=== PATIENT | female | born 1965 | race Two or more races ===

== ENCOUNTER 2017-01-16 09:57 | Emergency (ER) | payer OTHER ==
[2017-01-16] MEDS ORDERED: IOPAMIDOL 370 (76%) 100 ML VIAL IV ONE (09:58)
[2017-01-16] MEDS ORDERED: SODIUM CHLORIDE 0.9% 1,000 ML ONE (10:28)
[2017-01-16] MEDS ORDERED: ONDANSETRON 4 MG/2ML 2 ML VIAL ONE (10:28)
[2017-01-16 10:40] LABS: ABSOLUTE NEUTROPHIL COUNT 3.9 K/mm3 (1.8-7.7); BASO % 0.5 % (0.2-1.0); EOS # 0.1 (0.0-0.5); EOS % 1.1 % (0.9-2.9); HEMATOCRIT 43.6 % (37.0-47.0); HEMOGLOBIN 15.1 gm/l (12.0-16.0); IMM NEUT% 0.3 % (0-1); LYMPH % 39.2 % (15-45); MEAN CELL VOLUME 90.6 fl (81.0-99.0); MEAN CORPUSCULAR HEMOGLOBIN 31.4 pg (27.0-31.0); MEAN CORPUSCULAR HGB CONC 34.6 g/dl (33.0-37.0); MEAN PLATELET VOLUME 10.3 fl (7.4-10.4); MONO # 0.6 (0.0-0.8); MONO % 7.6 % (4-12); NEUT % 51.3 % (43-75); PLATELET COUNT 251 K/mm3 (130-400); RED CELL DISTRIBUTION WIDTH 11.7 % (11.5-14.5)
[2017-01-16 10:51] LABS: ALB/GLOB RATIO 1.2 (>1.0); ALBUMIN 4.2 gm/dL (3.5-5.7); CALCIUM 9.9 mg/dL (8.6-10.3)
--- NOTE | 2017-01-16 11:06 | CT ---
HEAD CT WITHOUT CONTRAST HISTORY: Right eye not opening. No intravenous contrast administered. Contiguous axial images acquired from skull base to vertex. COMPARISON:None. BRAIN VOLUME: Mild diffuse volume loss for patient age with prominence of subarachnoid spaces. VENTRICULAR SIZE:No gross ventriculomegaly. FOCAL MASS EFFECT: Multiple dural based calcifications, some of which may reflect early changes of hyperostosis frontalis interna. Foci of minimal left frontal cortical buckling without midline shift. Small low-attenuation focus of left-sided midbrain. ACUTE INTRACRANIAL HEMORRHAGE:None. CALVARIUM:Grossly intact. VISIBLE PARANASAL SINUSES AND MASTOID AIR CELLS:Grossly clear. IMPRESSION: No gross mass effect, ventriculomegaly, or acute intracranial hemorrhage. Low-attenuation focus of left-sided midbrain may reflect remote lacunar infarct or prominent perivascular space; however, this is contralateral to patient's symptoms. Findings discussed with Dr. Hagen of the Emergency Medicine clinical service on 01/16/2017 at 1102 hours.
--- NOTE | 2017-01-16 11:57 | CT ---
CTA CAROTID W/ POST PROCESS COMPARISON: None. HISTORY: Right eye not opening. Acute onset. TECHNIQUE: [employer] [address] scanner. Intravenous injection 80 mL 37. Contrast-enhanced images obtained from the aortic arch to the skull base. Under concurrent supervision and interpretation, requiring a separate 3-D workstation, the manufacturing technologist created 3-D CT angiograms. An automated dose reduction technique was used to minimize patient radiation dose. Dose information: DLP(mGycm): 306.40 FINDINGS: Aortic arch: Normal. Brachiocephalic artery: Normal. Right common carotid artery: Normal. Right internal carotid artery: Normal. Right external carotid artery: Normal. Right vertebral artery: Normal. Right subclavian artery: Normal. Left subclavian artery: Normal. Left common carotid artery: Normal. Left internal carotid artery: Normal. Left external carotid artery: Normal. Left vertebral artery: Normal. Internal jugular veins: Normal. Airway: Normal Lymph nodes: Normal Salivary glands: Normal Thyroid gland: Normal. Muscles: Normal. Spine: Mild degenerative changes. Superior mediastinum: Normal Lung apices: Normal. IMPRESSION: Normal CT angiogram of the neck. The results were discussed with Darnell Hagen M.D. 01/16/2017 at 11:48
--- NOTE | 2017-01-16 11:59 | CT ---
CTA HEAD W/ POST PROCESS COMPARISON: CT of the head without contrast, 01/16/2017. HISTORY: Right eye not opening. Possible aneurysm causing compression of the 3rd cranial nerves TECHNIQUE: [employer] [address] scanner. Unenhanced images obtained through the head. Intravenous injection 80 mL [id number]. Contrast-enhanced images obtained. Under concurrent supervision and interpretation, requiring a separate 3-D workstation, the electroencephalograph technologist created 3-D CT angiograms. An automated dose reduction technique was used to minimize patient radiation dose. Dose information: CTDIvol (mGy): 7.80 DLP(mGycm): 306.40 FINDINGS: 3-D CT angiogram findings: No vessel occlusion. Normal [place]. No arteriovenous malformation. No aneurysm. IMPRESSION: Normal CT angiogram of the brain. No aneurysm. Report was discussed with Darnell Hagen M.D., 01/16/2017 at 11:48
[2017-01-16] MEDS ORDERED: METOCLOPRAMIDE HCL 5 MG/ML 2ML VIAL ONE (12:49)
[2017-01-16] MEDS ORDERED: KETOROLAC TROMETHAMINE 30 MG/ML 1 ML VIAL ONE (12:49)
[2017-01-16] MEDS ORDERED: DIPHENHYDRAMINE HCL 50 MG/1 ML VIAL ONE (12:50)
[2017-01-16 15:49] LABS: A1C-GLYCOHEMOGLOBIN 1.8 g/dl; HEMOGLOBIN-GLYCO 14.7 g/dl
== END 2017-01-16 14:30 | disposition home or self-care (01) ==
LOC: ED 09:57
DX: H49.01 Third [oculomotor] nerve palsy, right eye (principal); E11.9 Type 2 diabetes mellitus without complications; R51 Headache; R11.2 Nausea with vomiting, unspecified
CPT/HCPCS: 82150; 85025; 80053; 83036; 70450; 70496; 70498; 96375 ×3; 99283 ×2; 96374; 96361 ×2; J1200; J2765; J1885; J2405; J7030; Q9967